=== PATIENT | male | born 2005 | race Caucasian/White ===

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

== ENCOUNTER 2023-03-01 08:36 | Emergency (ER) | payer MEDICAID ==
[~2023-03-01] VITALS: Ht 182.9 cm; Wt 60.0 kg
[2023-03-01 08:38] VITALS: BP 124/74
[2023-03-01] MEDS ORDERED: LEVO-65 PO (08:50)
[2023-03-01] MEDS ORDERED: LORA10CA PO (08:50)
[2023-03-01] MEDS ORDERED: METH4TAB3 PO (08:50)
== END 2023-03-01 08:56 | disposition home or self-care (01) ==
LOC: ER 08:36
DX: R04.0 Epistaxis (principal); J32.9 Chronic sinusitis, unspecified; R51.9 Headache, unspecified; F17.200 Nicotine dependence, unspecified, uncomplicated; Z88.1 Allergy status to other antibiotic agents; Z91.09 Other allergy status, other than to drugs and biological substances
CPT/HCPCS: 99283